=== PATIENT | male | born 1940 | race Caucasian/White ===

== ENCOUNTER → 2018-01-13 | Outpatient (CLI) | payer BC, MEDICARE ==
[~2018-01-13] MED LIST: ASPI81TA50 PO; LEVO50TA5 PO
[2018-01-13 09:21] LABS: BASOPHILS # (AUTO) 0.02 x10^3/uL (0-0.1); BASOPHILS % (AUTO) 1 % (0-1); EOSINOPHILS # (AUTO) 0.09 x10^3/uL (0-0.4); EOSINOPHILS % (AUTO) 2 % (1-7); LYMPHOCYTES # (AUTO) 1.41 x10^3/uL (1-3.4); LYMPHOCYTES % (AUTO) 36 % (22-44); MD NO; MEAN CORPUSCULAR HEMOGLOBIN 29.8 pg (27.5-34.5); MEAN CORPUSCULAR HGB CONC 33.6 g/dL (33.2-36.2); MEAN CORPUSCULAR VOLUME 88.7 fL (81-97); MEAN PLATELET VOLUME 7.7 fL (7.4-10.4); MONOCYTES # (AUTO) 0.41 x10^3/uL (0.2-0.8); MONOCYTES % (AUTO) 11 % (2-9); NEUTROPHILS # (AUTO) 1.94 x10^3/uL (1.8-6.8); NEUTROPHILS % (AUTO) 50 % (42-75); PLATELET COUNT 241 x10^3/uL (130-400); RED BLOOD COUNT 5.42 x10^6/uL (4.38-5.82); RED CELL DISTRIBUTION WIDTH 14.4 % (9.4-14.8)
[2018-01-13 09:31] LABS: ALANINE AMINOTRANSFERASE 42 U/L (12-78); ALBUMIN 3.6 g/dL (3.4-5.0); ANION GAP 7 mmol/L (5-15); CALCIUM 9.1 mg/dL (8.5-10.1); CHLORIDE 105 mmol/L (98-107); CREATININE 1.28 mg/dL (0.7-1.3)
[2018-01-13 09:33] LABS: ALKALINE PHOSPHATASE 73 U/L (45-117); BILIRUBIN,TOTAL 0.7 mg/dL (0.2-1.0); TOTAL PROTEIN 7.4 g/dL (6.4-8.2)
== END ==
LOC: STAR 08:15
PROVIDERS: ATTEND Surgery
DX: Z01.818 Encounter for other preprocedural examination (principal)
CPT/HCPCS: 36415; 71046; 80053; 85025; 93005

== ENCOUNTER 2018-01-21 06:09 | Inpatient (IN) | payer BC, MEDICARE ==
[~2018-01-21] VITALS: Ht 172.7 cm; Wt 81.0 kg
[2018-01-21] MEDS ORDERED: LACTATED RINGERS 1,000 ML IV SCH (06:42)
[2018-01-21] MEDS ORDERED: ACETAMINOPHEN 500 MG TABLET ONE (06:44)
[2018-01-21] MEDS ORDERED: LIDOCAINE-MPF 1%, 2ML ONE (06:45)
[2018-01-21] MEDS ORDERED: GABAPENTIN 300 MG CAPSULE ONE (06:45)
[2018-01-21] MEDS ORDERED: FENTANYL PF 250 MCG/5ML ONE (06:46)
[2018-01-21] MEDS ORDERED: MIDAZOLAM 1 MG/ML, 2ML ONE (06:46)
[2018-01-21] MEDS ORDERED: BUPIVACAINE/PF 0.5% ONE (06:46)
[2018-01-21] MEDS ORDERED: INDOCYANINE GREEN 25 MG VIAL ONE (06:46)
[2018-01-21] MEDS ORDERED: PROPOFOL 10 MG/ML, 20ML ONE (06:47)
[2018-01-21] MEDS ORDERED: ROCURONIUM 10MG/ML,5ML ONE ×2 (06:48→08:51)
[2018-01-21] MEDS ORDERED: GLYCOPYRROLATE 0.4 MG/2 ML, 2ML ONE (06:49)
[2018-01-21] MEDS ORDERED: NEOSTIGMINE 1 MG/ML, 10ML ONE (06:49)
[2018-01-21] MEDS ORDERED: GABAPENTIN 300 MG CAPSULE PO ONE (07:00)
[2018-01-21] MEDS ORDERED: LIDOCAINE-MPF 1%, 2ML INFIL ONE (07:00)
[2018-01-21] MEDS ORDERED: ACETAMINOPHEN 500 MG TABLET PO ONE (07:00)
[2018-01-21] MEDS ORDERED: HYDROmorphone 1 MG/ML, 1ML IV PRN (07:30)
[2018-01-21] MEDS ORDERED: ONDANSETRON 2MG/ML, 2ML IVPush PRN (07:30)
[2018-01-21] MEDS ORDERED: morphine SULFATE 10 MG/ML, 1ML IV PRN (07:30)
[2018-01-21] MEDS ORDERED: DIAZEPAM 5 MG/ML, 2ML IVPush PRN (07:30)
[2018-01-21] MEDS ORDERED: PROMETHAZINE 12.5 MG SUPP PR PRN (07:30)
[2018-01-21] MEDS ORDERED: PROMETHAZINE 25 MG/ML, 1ML IV PRN (07:30)
[2018-01-21] MEDS ORDERED: LABETALOL 5MG/ML, 20ML IV PRN (07:30)
[2018-01-21] MEDS ORDERED: MEPERIDINE/PF 25MG/0.5ML IVPush PRN (07:30)
[2018-01-21] MEDS ORDERED: hydrALAzine 20 MG/ML, 1ML IV PRN (07:30)
[2018-01-21] MEDS ORDERED: FENTANYL PF 100 MCG/2ML IV PRN (07:30)
[2018-01-21] MEDS ORDERED: OXYcodone 5 MG/5 ML ORAL.SOL UDC PO PRN (07:30)
[2018-01-21] MEDS ORDERED: CEFOTETAN 2 GM ONE (07:58)
[2018-01-21] MEDS ORDERED: BUPIVACAINE/PF 0.5% INJ ONE (09:22)
[2018-01-21] MEDS ORDERED: ROPIvacaine/PF 0.2%, 20 ML ONE ×2 (09:37)
[2018-01-21] MEDS ORDERED: PHENYLEPHRINE 10 MG/ML ONE (09:43)
[2018-01-21] MEDS ORDERED: ACETAMINOPHEN 650 MG/20.3 ML UDC ONE (11:03)
[2018-01-21] MEDS ORDERED: OXYcodone 5 MG/5 ML ORAL.SOL UDC ONE (11:04)
[2018-01-21] MEDS ORDERED: FENTANYL PF 100 MCG/2ML ONE (11:52)
[2018-01-21] MEDS ORDERED: DEXAMETHASONE 4 MG/ML, 1ML IVPush PRN (13:00)
[2018-01-21] MEDS ORDERED: DIPHENHYDRAMINE 50 MG/ML, 1ML IVPush PRN (13:00)
[2018-01-21] MEDS ORDERED: SCOPOLAMINE PATCH, 1.5MG PATCH.TD72 TD PRN (13:00)
[2018-01-21] MEDS ORDERED: LORazepam 1MG TABLET PO PRN (13:00)
[2018-01-21] MEDS ORDERED: OXYcodone IR 5MG TABLET PO PRN (13:00)
[2018-01-21] MEDS ORDERED: LORazepam 2 MG/ML, 1ML IVPush PRN (13:00)
[2018-01-21] MEDS ORDERED: DIPHENHYDRAMINE 25 MG CAPSULE PO PRN (13:00)
[2018-01-21] MEDS ORDERED: HYDROmorphone 1 MG/ML, 1ML IVPush PRN (13:00)
[2018-01-21] MEDS ORDERED: ONDANSETRON 2MG/ML, 2ML IV PRN (13:00)
[2018-01-21] MEDS ORDERED: CALCIUM CARBONATE 500 MG TAB.CHEW PO PRN (13:00)
[2018-01-21] MEDS ORDERED: HALOPERIDOL 5 MG/ML IVPush PRN (13:00)
[2018-01-21] MEDS: D5%-0.45NACL+KCL 20MEQ 1,000 ML IV SCH (13:00)
[2018-01-21] MEDS: ACETAMINOPHEN 500 MG TABLET PO SCH ×2 (13:50→20:50)
[2018-01-21 13:57] VITALS: BP 123/79
[2018-01-21] MEDS: IBUPROFEN 800 MG TABLET PO SCH ×2 (17:10→23:43)
[2018-01-21 19:56] VITALS: BP 120/76
[2018-01-21 23:45] VITALS: BP 100/62
[2018-01-22] MEDS: ACETAMINOPHEN 500 MG TABLET PO SCH ×4 (02:49→19:59)
[2018-01-22 03:52] VITALS: BP 110/65
[2018-01-22] MEDS ORDERED: LEVOTHYROXINE 25 MCG TABLET ONE (05:41)
[2018-01-22 05:42] LABS: BASOPHILS # (AUTO) 0.04 x10^3/uL (0-0.1); BASOPHILS % (AUTO) 0 % (0-1); EOSINOPHILS # (AUTO) 0.01 x10^3/uL (0-0.4); EOSINOPHILS % (AUTO) 0 % (1-7); LYMPHOCYTES # (AUTO) 1.11 x10^3/uL (1-3.4); LYMPHOCYTES % (AUTO) 13 % (22-44); MD NO; MEAN CORPUSCULAR HEMOGLOBIN 29.6 pg (27.5-34.5); MEAN CORPUSCULAR HGB CONC 33.4 g/dL (33.2-36.2); MEAN CORPUSCULAR VOLUME 88.6 fL (81-97); MEAN PLATELET VOLUME 7.8 fL (7.4-10.4); MONOCYTES # (AUTO) 0.85 x10^3/uL (0.2-0.8); MONOCYTES % (AUTO) 10 % (2-9); NEUTROPHILS # (AUTO) 6.76 x10^3/uL (1.8-6.8); NEUTROPHILS % (AUTO) 77 % (42-75); PLATELET COUNT 206 x10^3/uL (130-400); RED BLOOD COUNT 4.68 x10^6/uL (4.38-5.82); RED CELL DISTRIBUTION WIDTH 14.6 % (9.4-14.8)
[2018-01-22] MEDS: LEVOTHYROXINE 50 MCG TABLET PO SCH (05:44)
[2018-01-22 05:54] LABS: ANION GAP 7 mmol/L (5-15); CALCIUM 8.9 mg/dL (8.5-10.1); CHLORIDE 102 mmol/L (98-107)
[2018-01-22 05:57] LABS: CREATININE 1.55 mg/dL (0.7-1.3)
[2018-01-22] MEDS ORDERED: SODIUM CHLORIDE 0.9% 1,000ML IVBOLUS ONE (06:30)
[2018-01-22] MEDS: ENOXAPARIN 40 MG/0.4 ML SQ SCH (08:15)
[2018-01-22 08:42] VITALS: BP 121/67
[2018-01-22] MEDS: D5%-0.45NACL+KCL 20MEQ 1,000 ML IV SCH (09:00)
[2018-01-22] MEDS: IBUPROFEN 800 MG TABLET PO SCH ×3 (09:00→19:30)
[2018-01-22 13:36] VITALS: BP 127/72
[2018-01-22 19:45] VITALS: BP 134/78
[2018-01-23 00:17] VITALS: BP 130/79
[2018-01-23] MEDS: ACETAMINOPHEN 500 MG TABLET PO SCH ×4 (02:20→20:02)
[2018-01-23] MEDS: D5%-0.45NACL+KCL 20MEQ 1,000 ML IV SCH (03:14)
[2018-01-23 05:38] LABS: BASOPHILS # (AUTO) 0.02 x10^3/uL (0-0.1); BASOPHILS % (AUTO) 0 % (0-1); EOSINOPHILS # (AUTO) 0.11 x10^3/uL (0-0.4); EOSINOPHILS % (AUTO) 2 % (1-7); LYMPHOCYTES # (AUTO) 1.32 x10^3/uL (1-3.4); LYMPHOCYTES % (AUTO) 19 % (22-44); MD NO; MEAN CORPUSCULAR HEMOGLOBIN 29.4 pg (27.5-34.5); MEAN CORPUSCULAR HGB CONC 33.6 g/dL (33.2-36.2); MEAN CORPUSCULAR VOLUME 87.7 fL (81-97); MEAN PLATELET VOLUME 8.3 fL (7.4-10.4); MONOCYTES # (AUTO) 0.58 x10^3/uL (0.2-0.8); MONOCYTES % (AUTO) 9 % (2-9); NEUTROPHILS # (AUTO) 4.76 x10^3/uL (1.8-6.8); NEUTROPHILS % (AUTO) 70 % (42-75); PLATELET COUNT 186 x10^3/uL (130-400); RED BLOOD COUNT 4.75 x10^6/uL (4.38-5.82); RED CELL DISTRIBUTION WIDTH 14.6 % (9.4-14.8)
[2018-01-23 05:45] LABS: CHLORIDE 109 mmol/L (98-107)
[2018-01-23 05:58] LABS: ANION GAP 8 mmol/L (5-15); CALCIUM 9.2 mg/dL (8.5-10.1); CREATININE 1.07 mg/dL (0.7-1.3)
[2018-01-23] MEDS: LEVOTHYROXINE 50 MCG TABLET PO SCH (06:16)
[2018-01-23 07:38] VITALS: BP 150/89
[2018-01-23] MEDS: ENOXAPARIN 40 MG/0.4 ML SQ SCH (08:35)
[2018-01-23 15:30] VITALS: BP 150/88
[2018-01-23 18:42] VITALS: BP 152/90
[2018-01-24 00:56] VITALS: BP 160/84
[2018-01-24] MEDS: D5%-0.45NACL+KCL 20MEQ 1,000 ML IV SCH (01:00)
[2018-01-24] MEDS: ACETAMINOPHEN 500 MG TABLET PO SCH ×2 (02:29→08:20)
[2018-01-24 05:14] LABS: BASOPHILS # (AUTO) 0.02 x10^3/uL (0-0.1); BASOPHILS % (AUTO) 0 % (0-1); EOSINOPHILS # (AUTO) 0.22 x10^3/uL (0-0.4); EOSINOPHILS % (AUTO) 4 % (1-7); LYMPHOCYTES # (AUTO) 1.42 x10^3/uL (1-3.4); LYMPHOCYTES % (AUTO) 26 % (22-44); MD NO; MEAN CORPUSCULAR HEMOGLOBIN 29.6 pg (27.5-34.5); MEAN CORPUSCULAR HGB CONC 33.6 g/dL (33.2-36.2); MEAN CORPUSCULAR VOLUME 88.2 fL (81-97); MEAN PLATELET VOLUME 8.2 fL (7.4-10.4); MONOCYTES # (AUTO) 0.62 x10^3/uL (0.2-0.8); MONOCYTES % (AUTO) 11 % (2-9); NEUTROPHILS # (AUTO) 3.24 x10^3/uL (1.8-6.8); NEUTROPHILS % (AUTO) 59 % (42-75); PLATELET COUNT 212 x10^3/uL (130-400); RED BLOOD COUNT 4.75 x10^6/uL (4.38-5.82); RED CELL DISTRIBUTION WIDTH 14.7 % (9.4-14.8)
[2018-01-24 05:18] LABS: ANION GAP 6 mmol/L (5-15); CALCIUM 9.3 mg/dL (8.5-10.1); CHLORIDE 105 mmol/L (98-107); CREATININE 1.08 mg/dL (0.7-1.3)
[2018-01-24] MEDS: LEVOTHYROXINE 50 MCG TABLET PO SCH (06:14)
[2018-01-24 07:41] VITALS: BP 144/93
[2018-01-24] MEDS: ENOXAPARIN 40 MG/0.4 ML SQ SCH (08:00)
[2018-01-24 10:30] VITALS: BP 124/65
== END 2018-01-24 11:00 | disposition home or self-care (01) | DRG 331 ==
LOC: ORIP 06:09 → 4NOR 12:22
PROVIDERS: ADMIT Surgery; ATTEND Surgery
PROC: 0DBN4ZZ Excision of Sigmoid Colon, Percutaneous Endoscopic Approach (ICD-10-PCS; 2018-01-21)
PROC: 8E0W4CZ Robotic Assisted Procedure of Trunk Region, Percutaneous Endoscopic Approach (ICD-10-PCS; 2018-01-21)
PROC: 0DBP4ZZ Excision of Rectum, Percutaneous Endoscopic Approach (ICD-10-PCS; principal; 2018-01-21 07:30)
DX: K57.32 Diverticulitis of large intestine without perforation or abscess without bleeding (principal)
CPT/HCPCS: 36415; 80048; 85025; 86140; 86850; 86900; 88307; J1100; J1650; J2250; J2405; J2704; J2710; J2795; J3010; J3360; J3490; J2370; J7030; J7120; S0074